=== PATIENT | male | born 1955 | race Caucasian/White ===

== ENCOUNTER 2020-04-07 11:14 | Outpatient (CLI) | payer MEDICARE, OTHER, SELFPAY ==
--- NOTE | ~2020-04-07 | US_ITS ---
EXAMINATION: US thyroid DATE: 04/07/2020 11:44 INDICATION: Hypothyroidism TECHNIQUE: Multiple ultrasound images of the thyroid were obtained. COMPARISON: None. FINDINGS: The right thyroid lobe measures 3.6 x 1.2 x 1.2 cm. The left thyroid lobe measures cm. Thyroid isthm us measures 3 mm in thickness. No discrete nodules identified. There is normal echotexture, echogenic ity and vascular flow throughout the thyroid gland. IMPRESSION: 1. Normal thyroid ultrasound. Reviewed, dictated and finalized at location B. CTOR OF PLANNING
== END 2020-04-07 11:15 | disposition home or self-care (01) ==
PROVIDERS: PCP Internal Medicine; Visit Provider Nurse Practitioner
DX: E03.9 Hypothyroidism, unspecified (principal)
CPT/HCPCS: 76536

== ENCOUNTER 2023-01-17 03:00 | Day surgery (SDC) | payer MEDICARE, OTHER, SELFPAY ==
[2023-01-07 10:37] VITALS: BMI 25.9
--- NOTE | 2023-01-15 12:15 | SUR.PREOP ---
Patient called regarding upcoming procedure. Reviewed preop instructions, appointment times, and procedure prep.
--- NOTE | 2023-01-16 13:59 | PM.HPGS ---
History of Present Illness History of Present Illness Consent: Risks, benefits, and alternatives have been discussed and questions answered. Patient agrees to proceed with procedure. Chief complaint: GERD Narrative: Atilio Raman is a 67 year old male Referred for endoscopy because of persistent reflux symptoms. His father had cancer of the esophagus and consequently there is concern for possible Ramos's. Review of Systems Review of Systems: All systems reviewed & are unremarkable except as noted in HPI and below PMFSH Past Medical History Medical History Essential (primary) hypertension Hyperlipidemia, unspecified Hypothyroidism, unspecified Inguinal hernia Left shoulder pain Neck pain Osteoarthritis Surgical History Surgical History H/O inguinal hernia repair 2019 H/O surgical fusion joint neck; 2009 Presence of artificial shoulder joint right; 2017 Family History Family History Sibling Diabetes mellitus Father Family history of malignant neoplasm of esophagus Other Cerebrovascular accident Family history of malignant neoplasm Family history of tuberculosis Hypertension Social History Social History Smoking status: Never smoker Alcohol intake: current Alcohol use details: occasionally Lack of Transportation: No Lack of Food: Never True Current Housing: I Have Housing Concerned About Future Housing: No Difficulty Paying Gas/Electric Bills: No Difficulty Paying for Meds: No Currently Unemployed: No Education: Trade/Vocational Certificate Difficulty w/ Childcare or Family Care: No Living arrangements: with family Spiritual care concerns: No Meds Home Medications and Allergies Home Medications Medication Instructions Recorded Confirmed Type lisinopril 40 mg tablet 40 mg PO DAILY #90 tabs 09/26/22 01/07/23 Rx ezetimibe 10 mg tablet (Zetia) 10 mg PO DAILY #90 tabs 10/17/22 01/07/23 Rx levothyroxine 75 mcg tablet See Rx Instructions .Route 01/13/23 01/17/23 Rx .COMPLEX #90 tabs Allergies Allergy/AdvReac Type Severity Reaction Status Date / Time oxycodone Allergy Unknown Insomnia Verified 01/17/23 11:19 Exam Const: General: alert Orientation/consciousness: patient oriented x3 Resp: Auscultation: clear to auscultation bilaterally Cardio: Rhythm: regular rhythm GI: GI Palp: Yes Soft to palpation and No Tenderness to palpation present (GI) Neuro: General: patient oriented x3 Assessment and Plan Assessment and plan (1) GERD (gastroesophageal reflux disease): Code(s): K21.9 - Gastro-esophageal reflux disease without esophagitis Status: Acute Assessment and Plan: EGD with possible biopsy or dilatation or cautery.
[2023-01-17 11:26] VITALS: BP 159/88; PULSE 68; RESP 20; TEMP 36.2; O2SAT 99; BMI 26.6
[2023-01-17] MEDS: LACTATED RINGERS 1,000 ML 150 ML IV CONT (11:32)
--- NOTE | 2023-01-17 11:41 | WPDANESEPPF ---
Anes - Initial Pre Proc Eval Procedure: Operation Date: 01/17/23 12:30 Proposed Procedures p Esophagogastroduodenoscopy - Flavio Espana MD Date/Time: 01/17/23 11:41 Surgeon: Flavio Espana MD Pre Op Diagnosis: GERD Patient Data Age: 67 Gender: M Height: 1.83 m Weight: 89 kg Last Vital Signs Temp 97.2 F L 01/17/23 11:26 Pulse 68 01/17/23 11:26 Resp 20 01/17/23 11:26 BP 159/88 H 01/17/23 11:26 Pulse Ox 99 01/17/23 11:26 O2 Del Method Room Air 01/17/23 11:26 Allergies Allergy/AdvReac Type Severity Reaction Status Date / Time oxycodone Allergy Unknown Insomnia Verified 01/17/23 11:19 Home Medications Medication Instructions Recorded Confirmed Type lisinopril 40 mg tablet 40 mg PO DAILY #90 tabs 09/26/22 01/07/23 Rx ezetimibe 10 mg tablet (Zetia) 10 mg PO DAILY #90 tabs 10/17/22 01/07/23 Rx levothyroxine 75 mcg tablet See Rx Instructions .Route 01/13/23 01/17/23 Rx .COMPLEX #90 tabs Patient hx anesthesia problems: none Family hx anesthesia problems: none Results Review: All pre-operative results and documents have been reviewed as part of the pre-operative evaluation. [facility] Past Medical History Medical History Essential (primary) hypertension Hyperlipidemia, unspecified Hypothyroidism, unspecified Inguinal hernia Left shoulder pain Neck pain Osteoarthritis Surgical History Surgical History H/O inguinal hernia repair 2019 H/O surgical fusion joint neck; 2009 Presence of artificial shoulder joint right; 2017 Family History Family History Sibling Diabetes mellitus Father Family history of malignant neoplasm of esophagus Other Cerebrovascular accident Family history of malignant neoplasm Family history of tuberculosis Hypertension Social History Social History Smoking status: Never smoker Alcohol intake: current Alcohol use details: occasionally Lack of Transportation: No Lack of Food: Never True Current Housing: I Have Housing Concerned About Future Housing: No Difficulty Paying Gas/Electric Bills: No Difficulty Paying for Meds: No Currently Unemployed: No Education: Trade/Vocational Certificate Difficulty w/ Childcare or Family Care: No Living arrangements: with family Spiritual care concerns: No Anes - Eval Final PreProcedure Day of Procedure 01/17/23 11:41 Patient weight: overweight Heart: regular rate and rhythm Lungs: clear to auscultation Airway: Mallampati scale class II Neurological: alert and oriented Last oral intake: >/= 8 hours ASA classification: III Emergent: no Anesthetic plan: proceed Anesthesia type and monitoring: general GIVS and standard monitoring Results Review: All pre-operative results and documents have been reviewed as part of the pre-operative evaluation. Informed Consent: The patient's anesthetic plan and its attendant risks and benefits were discussed with the patient/family/POA. Questions were solicited and answers provided to the satisfaction of the patient/family/POA.
--- NOTE | 2023-01-17 12:06 | SUR.OPER ---
Oral suction used by FOOD AND NUTRITION SERVICES ASSISTANT during procedure for excess secretions.
[2023-01-17 12:12] VITALS: BP 102/70; PULSE 77; RESP 16; O2SAT 99
[2023-01-17 12:22] VITALS: BP 130/92; PULSE 76; RESP 20; O2SAT 100
[2023-01-17 12:32] VITALS: BP 123/89; PULSE 72; RESP 19; O2SAT 100
== END 2023-01-17 12:41 | disposition home or self-care (01) ==
PROVIDERS: PCP Internal Medicine; Visit Provider Internal Medicine Gastroenterology
PROC: 0DJ08ZZ Inspection of Upper Intestinal Tract, Via Natural or Artificial Opening Endoscopic (ICD-10-PCS; CPT 43235; principal; 2023-01-17 12:30)
DX: K21.00 Gastro-esophageal reflux disease with esophagitis, without bleeding (principal); I10 Essential (primary) hypertension; E78.5 Hyperlipidemia, unspecified; E03.9 Hypothyroidism, unspecified; Z98.1 Arthrodesis status; Z80.0 Family history of malignant neoplasm of digestive organs
CPT/HCPCS: 43239; 88305; J2704; J7120

== ENCOUNTER → 2023-05-01 10:53 | Outpatient (CLI) | payer MEDICARE, OTHER, SELFPAY ==
--- NOTE | ~2023-05-01 | XR_ITS ---
EXAMINATION:[id number] DATE: 05/01/2023 11:13 INDICATION: Neck pain TECHNIQUE: AP, lateral, lateral swimmers and odontoid views of the cervical spine are provided. COMPARISON: None FINDINGS: There are changes of anterior fusion from C4 through C6. There are 2 mm of retrolisthesis o f C3 on C4. There is severe loss of intervertebral disc space height at C3-4 and C6-7. The odontoid p rocess is intact. No fracture is identified. The vertebral body heights are maintained. There is lottie re uncovertebral joint osteoarthritis throughout the cervical spine. Prevertebral soft tissues are no rmal. IMPRESSION: 1. Changes of anterior fusion and moderate cervical spondylosis without acute findings. Reviewed, dictated and finalized at location L. PER IMPRESSION: 1. Changes of anterior fusion and moderate cervical spondylosis without acute f indings.
== END ==
PROVIDERS: PCP Nurse Practitioner; Visit Provider Nurse Practitioner
DX: M47.892 Other spondylosis, cervical region (principal); Z98.1 Arthrodesis status
CPT/HCPCS: 72040

== ENCOUNTER 2023-11-06 09:48 | Outpatient (CLI) | payer MEDICARE, OTHER, SELFPAY ==
--- NOTE | ~2023-11-06 | US_ITS ---
EXAMINATION: US soft tissue abdomen DATE: 11/06/2023 10:01 INDICATION: Intra-abdominal and pelvic swelling. TECHNIQUE: Multiple grayscale and Doppler ultrasound images of the abdomen were obtained. COMPARISON: None FINDINGS: There is diastasis of the rectus abdominis muscles. No hernia. IMPRESSION: 1. Diastasis of the rectus abdominis muscles. No hernia. Reviewed, dictated and finalized at location A.
== END 2023-11-06 09:49 | disposition home or self-care (01) ==
LOC: GOSHIMG 09:49
PROVIDERS: PCP Internal Medicine; Visit Provider Nurse Practitioner
DX: M62.08 Separation of muscle (nontraumatic), other site (principal)
CPT/HCPCS: 76705

== ENCOUNTER 2023-12-23 10:04 | Outpatient (CLI) | payer MEDICARE, OTHER, SELFPAY ==
--- NOTE | ~2023-12-23 | MR_ITS ---
MRI of the cervical spine Clinical History: Neck pain Technique: Axial T2-weighted and gradient images, and sagittal T1-weighted, T2-weighted, and STIR isabel ges were acquired. Findings: No acute fracture identified. There is 2 mm retrolisthesis of C3 over C4. There is anterior and interbody fusion extending from C4 through C6. There is severe degenerative disc narrowing at C6 -C7. There is advanced degenerative disc narrowing at C3-C4. No suspicious bone marrow signal abnorma lity seen. At C2-C3, there is no disc bulge or herniation. There is left neural foraminal narrowing related to l eft facet arthropathy. Right neural foramen preserved. No canal stenosis or cord compression. At C3-C4, there is disc osteophyte complex with minimal canal stenosis but no mateus cord compression. There is bilateral neural foraminal narrowing. At C4-C5, there is right neural foraminal narrowing. Left neural foramen preserved. No canal stenosis or cord compression. No disc bulge or herniation. At C5-C6, there is no disc bulge or herniation. There is mild bilateral neural foraminal narrowing, r ight worse than left. No canal stenosis or cord compression. At C6-C7, there is mild disc osteophyte complex. There is right neural foraminal narrowing. Left neur al foramen preserved. No canal stenosis or cord compression evident. No abnormal signal seen in the spinal cord. Paravertebral soft tissues are unremarkable. Impression: Mild degenerative spondylitic changes overall, as detailed above. Anterior and interbody fusion from C4 through C6. 2 mm retrolisthesis of C3 over C4. Reviewed, dictated and finalized at [facility]. Impression: Mild degenerative spondylitic changes overall, as detailed above. Anterior and interbody fusion from C4 through C6. 2 mm retrolisthesis of C3 over C4.
== END 2023-12-23 10:05 | disposition home or self-care (01) ==
LOC: MICIMG 10:05
PROVIDERS: PCP Internal Medicine; Visit Provider Neurological Surgery
DX: M54.2 Cervicalgia (principal); Z98.1 Arthrodesis status
CPT/HCPCS: 72141